=== PATIENT | female | born 1980 ===

== ENCOUNTER 2018-07-17 03:00 | Inpatient (IN) | payer MEDICAID ==
[2018-07-01 19:45] VITALS: BMI 36.0
[2018-07-17] MEDS ORDERED: Penicillin G 5 Million Unit Vial IVPB ONE ×2 (03:26→03:28)
[2018-07-17] MEDS ORDERED: Lactated Ringer's 1,000 ML IV ONE (03:26)
[2018-07-17] MEDS ORDERED: Lactated Ringer's 1,000 ML IV SCH (03:30)
--- NOTE | 2018-07-17 03:46 | OBHP ---
Datetime: 07/17/2018 03:32 IP Adm Impression: Postterm, intrauterine ; Active labor; Intact Membranes IP Admit Plan: Admit to unit; Initiate labor protocol IP Admit Plan Other: GBS positive; Advanced maternal age Admit Comment, IP Provider: 37 y.o. LMP 10/02/17, LATA 07/09/18 EGA 41w 1w confirmed by sono 01/03/18 at 12w 6d c/o Ctx onset 0200 hours, pain scale 7/10. (+) LOF 2000 hours 07/16/18, clear. Denies V B. (+) AFM. care: [facility]; AMA, abnormal 1hr GCT 148; 3hr GTT = 77/100/144/140; GBS (+) P Ob: x 3: 1998, female, 7lb, [facility]; 2003, female, 7 lb, [facility]; 2011, male 8lb 12oz, [facility]. No complications with any of the pregnancies or labor. P MANAGER PARKING: 14 x monthly x 5. Denies STIS or abnormal Pap PMH: denies PSH: denies NKDA Meds: PNV Sco Hx: denies tobacco, illicit drug or EtOH use. With FOB x 20 years. Homemaker Fam Hx: Mother alive 50y.o. Father alive 65 y.o., both no med issues P.E.: as above. WD in NAD. Awake, alert, oriented to time, person and place. Pleasant and cooperat travis. Accompanied by FOB and another support person Assessment: 37 y.o. P3, 41w 1d, active labor. Patient was scheduled for IOL this morning. GBS (+). Category 1 tracing. Clinically stable. Plan: 1) Admit 2) NPO 3) Admissoin labs 4) Continuous EFM 5) Penicillin, now and until delivery 6) Anticipate vaginal delivery Pelvic Type - PN: Adequate Extremities - PN: Normal Abdomen - PN: Normal Back - PN: Normal Breast - PN: Not Done Lungs - PN: Normal Heart - PN: Normal Thyroid - PN: Not Done Neurologic - PN: Normal HEENT - PN: Normal General - PN: Normal Weight - Estimated: 8 1/2 lb Presentation-Admit: Vertex FHR - Baseline A Provider: 130 Contraction Comments Provider: 2-3 Comments, ACOG Physical Exam: Abdomen: Gravid. Firm with contractions. Fundal height 40 cm All other systems reviewed and are negative Gestation - Est Wks by US: 41w 1d IP Hx Assessment: The History has been Reviewed and is Current EGA AdmitDate IP: 41.1 Vital Signs Provider: Reviewed; Within Normal Limits IP Indication for Induction: Not Applicable IP Chief Complaint: Uterine contractions NICHD Variability Prov Fetus A: Moderate 6-25bpm NICHD Accel Fetus A IP Provider: 15X15 FHR Category Provider Fetus A: Category I NICHD Decel Fetus A IP Provider: None Dilatation, Provider: 7 Effacement, Provider: 80 Station, Provider: -2 Genitourinary Exam: Normal DTRs - PN: Not Done
[2018-07-17 04:01] LABS: BASO % 0.3 % (0.0-2.0); EOS # 0.1 K/uL (0.0-0.7); EOS % 1.1 % (0.0-4.0); HEMOGLOBIN 12.2 g/dL (11.0-16.0); LYMPH # 2.7 K/uL (1.0-4.3); LYMPH % 28.2 % (20.0-40.0); MEAN CELL VOLUME 81.3 fL (81.0-99.0); MEAN CORPUSCULAR HEMOGLOBIN 26.7 pg (27.0-31.0); MEAN CORPUSCULAR HGB CONC 32.9 g/dL (33.0-37.0); MEAN PLATELET VOLUME 10.4 fL (7.2-11.7); MONO # 0.6 K/uL (0.0-0.8); MONO % 6.2 % (0.0-10.0); NEUT # 6.3 K/uL (1.8-7.0); NEUT % 64.2 % (50.0-75.0); NRBC % 0.2 % (0.0-2.0); RBC 4.56 Mil/uL (3.80-5.20); RED CELL DISTRIBUTION WIDTH 14.8 % (11.5-14.5); WHITE BLOOD COUNT 9.7 K/uL (4.8-10.8)
[2018-07-17 04:13] LABS: ALB/GLOB RATIO 1.2 (1.0-2.1); ALBUMIN 3.6 g/dL (3.5-5.0); AST/SGOT 18 U/L (14-36); BLOOD UREA NITROGEN 9 mg/dL (7-17); CALCIUM 9.4 mg/dl (8.6-10.4); GFR NON-AFRICAN AMERICAN > 60
[2018-07-17 04:15] LABS: ALT/SGPT < 6 U/L (9-52)
[2018-07-17] MEDS ORDERED: Nalbuphine HCL 10 mg/ml Ampule IVP ONE (04:18)
[2018-07-17] MEDS ORDERED: Fentanyl/Bupivacaine HCl 250 ML EPI ONE (07:43)
[2018-07-17] MEDS ORDERED: Oxytocin 30 UNIT in NS 500 ml 30 UNITS/500 ML BAG IV SCH (08:30)
--- NOTE | 2018-07-17 10:30 | OBPN ---
Datetime: 07/17/2018 08:45 IP Progress Impression: Normal progression of labor IP Procedures: Artificial ROM; Scalp Electrode; Sterile Vag Exam IP Progress Plan: Continue present management; Augmentation; Antibiotic therapy Membranes, Provider: Ruptured Amniotic Fluid Color, Provider: Clear Contraction Comments Provider: q2-3 min FHR - Baseline A Provider: 145 Vital Signs Provider: Reviewed NICHD Variability Prov Fetus A: Moderate 6-25bpm Dilatation, Provider: 9 Effacement, Provider: 90 Station, Provider: -1 NICHD Decel Fetus A IP Provider: Late Datetime: 07/17/2018 07:32 IP Informed Consent Obtain: Vaginal Delivery Gestation - Est Wks by US: 41.1 Presentation-Admit: Vertex IP Progress Note Comment: Patient seen and examined at bedside. Patient reports feeling contractions . Offers no complaints at this time. Vital signs reviewed SVE: /-3, bulging membranes A/P: Patient is a 37 year old at 41w1d who is in active labor, s/p nubain x 1 dose now req uesting epidural -Category I tracing -Will hydrate patient for epidural, anesthesia notified -GBS positive on Pen G 2.5 MMU q4H until delivery. Had one dose so far -Plan to AROM after epidural and next dose of Pen G -Anticipate vaginal delivery Plan discussed with Dr Frank Crane DO PGY-2 Pt seen and examined with Dr. Crane and agree with her findings and POC. FHR Category Provider Fetus A: Category I Datetime: 07/17/2018 03:32 Weight - Estimated: 8 1/2 lb NICHD Accel Fetus A IP Provider: 15X15
--- NOTE | 2018-07-17 10:56 | OBPN ---
Datetime: 07/17/2018 08:45 IP Progress Note Comment: Patient seen and examined at bedside. Patient is s/p epidural and is resti ng comfortably. AROM with moderate amount of clear fluid. Offers no complaints at this time VSS SVE: /-1 A/P: Patient is a 37 year old at 41w1d in active labor, s/p AROM and scalp electrode , now on pitocin -We will continue Pitocin -Reassuring tracing -Anticipate vaginal delivery Plan discussed with Dr Frank Crane DO PGY-2 Pt seen and examined with Dr. Crane and agreed with her findings and POC (Annotations: Data stored by CPN on behalf of user)
[2018-07-17] MEDS ORDERED: Oxycodone/Acetaminophen 5/325 mg Tab PO PRN ×2 (11:00)
[2018-07-17] MEDS ORDERED: Benzocaine/Menthol 20%-0.5% Topical Spray (60 ml) TOP PRN (12:00)
[2018-07-17 17:48] VITALS: RESP 18
--- NOTE | 2018-07-17 21:55 | OBPN ---
Datetime: 07/17/2018 09:35 IP Progress Impression: Normal progression of labor IP Procedures: Scalp Electrode; Sterile Vag Exam IP Progress Plan: Continue present management; Anticipate Vaginal Delivery Membranes, Provider: Ruptured Amniotic Fluid Color, Provider: Clear Contraction Comments Provider: q2-3 min FHR - Baseline A Provider: 145 IP Progress Note Comment: Patient seen and examined at bedside. Late decelerations noted on FHT. Pat ient reports having pressure. VSS SVE: 10/100/0 A/P: 37 year old at 41w1d in active phase of labor, on pitocin -Plan to start pushing -Anticipate vaginal delivery Plan discussed with Dr Frank Crane DO PGY-2 Pt seen and examined with Dr. Crane and all of her findings and POC were reviewed and agreed on. Vital Signs Provider: Reviewed NICHD Variability Prov Fetus A: Moderate 6-25bpm Dilatation, Provider: 10 Effacement, Provider: 100 Station, Provider: 0 NICHD Decel Fetus A IP Provider: Late
[2018-07-18 08:04] LABS: BASO % 0.3 % (0.0-2.0); EOS # 0.1 K/uL (0.0-0.7); EOS % 0.7 % (0.0-4.0); HEMOGLOBIN 10.8 g/dL (11.0-16.0); LYMPH # 2.2 K/uL (1.0-4.3); LYMPH % 21.2 % (20.0-40.0); MEAN CELL VOLUME 81.7 fL (81.0-99.0); MEAN CORPUSCULAR HEMOGLOBIN 27.5 pg (27.0-31.0); MEAN CORPUSCULAR HGB CONC 33.6 g/dL (33.0-37.0); MEAN PLATELET VOLUME 10.5 fL (7.2-11.7); MONO # 0.4 K/uL (0.0-0.8); MONO % 4.3 % (0.0-10.0); NEUT # 7.6 K/uL (1.8-7.0); NEUT % 73.5 % (50.0-75.0); NRBC % 0.1 % (0.0-2.0); RBC 3.94 Mil/uL (3.80-5.20); RED CELL DISTRIBUTION WIDTH 14.9 % (11.5-14.5); WHITE BLOOD COUNT 10.3 K/uL (4.8-10.8)
[2018-07-18] MEDS: Multiple Vitamins Tab PO SCH (10:20)
--- NOTE | 2018-07-18 18:09 | OBPPN ---
Datetime: 07/18/2018 07:42 PP Pain Prov: Within normal limits PP Nausea Prov: Denies PP Flatus Prov: Yes PP BM Prov: No PP Breasts Prov: Normal PP Heart Prov: Normal PP Lungs Prov: Normal PP Abdomen/Uterus Prov: Normal PP Lochia Prov: Normal PP Vulva/Perineum Prov: Not Done PP CVA Tenderness Prov: Not Done PP Extremities Prov: Normal PP C/S Incision Prov: Not Applicable PP Progress Prov: Normal PP Comments Phys Exam Prov: Fundal height 2 finger breadth below the umbilicus PP Impression Prov: Normal progression PP Plan Prov: Continue present management PP Progress Note Prov: Patient seen and examined at bedside. No acute events overnight as per nursin g staff. Pain is minimal and controlled with analgesics. Patient reports minimal lochia. She is passi ng flatus, urinating normally, ambulating well, and tolerating diet. She states that the baby is hiren stfeeding with good latch. She denies nausea, vomiting, or bowel movement. She further denies fevers , chills, shortness of breath, chest pain, or urinary symptoms. VS: BP:109/61 T: 98.1 HR: 62 O2: 100% Gen: NAD, AAOX3 Cardio: RRR, normal S1, S2 Lungs: CTA b/l Abdomen: Soft, non-tender, normal bowel sounds, Fundal height 2 finger breadth below the umbilicus Extremities: trace edema Assessment: Patient is a 37 year old s/p PPD #1. Plan: - Stable, afebrile - Pain control with Ibuprofen and Percocet - Encourage ambulation, hydration, - Continue routine post-deliverycare - Plan for discharge on 07/19 - Case discussed with Dr. Dale Long, PGY-1 Attending Note: patient seen, evaluated and examiend by me with the resident. I agree with the abo ve as documented. PPD#1 H/H 10.8/32.2. Patient is hemodynamically and clinically stable. Vital Signs Provider PP: Reviewed; Within Normal Limits
[2018-07-19] MEDS: Multiple Vitamins Tab PO SCH (09:28)
[2018-07-19] MEDS ORDERED: Influenza Vaccine 60 mcg/0.5 mL SYR (4YR UP) IM ONE (10:00)
[2018-07-19 16:02] VITALS: BP 125/73; PULSE 66; TEMP 97.8; O2SAT 98
--- NOTE | 2018-07-19 21:15 | OBDCSUM ---
Datetime: 07/19/2018 15:00 Discharged to, Provider: Home Follow up at, Provider: ALONDRA Disch Instr Activity: Normal activity Disch Instr Diet: Regular Discharge Diet restrict Prov: none Discharge Time: 07/19/2018 17:00 Follow up in weeks, Provider: 08/28/2018 Disch Referrals: None Datetime: 07/19/2018 14:50 Discharged to, Provider: Home Disch Instr Activity: Normal activity Disch Instr Diet: Regular Discharge Instructions, Provider: Routine instructions given Discharge Diagnosis, Provider: Term Delivered Discharge Time: 07/19/2018 14:49 Disch Referrals: None Discharge Comment, Provider: Patient seen and examined at bedside this am. No acute events overnight as per pt and nursing staff. Pain is minimal and controlled with ibuprofen only. Patient reports min imal lochia and minimal bleeding. She is passing flatus, had bowel movements, urinating, ambulating w ell and tolerating diet. She states that the baby is with good latch and also bottle-fe eding. She denies fevers, chills, headache, dizziness, vision changes, shortness of breath, chest pa in, nausea, vomiting, dysuria, hematuria. VS: T:97.9 BP:110/65 HR: 75 Gen: NAD, AAOX3 Cardio: RRR, normal S1, S2 Lungs: CTA b/l Abdomen: Soft, non-tender, normal bowel sounds, Fundal height 2 finger breadths below the umbilicu s Extremities: trace edema Assessment: Patient is a 37 year old PPD #2 s/p . Hemodynamically stable, afebrile. Pain controlle d with Ibuprofen. Had bowel movements, ambulating and tolerating diet. Stable and Satisfactory condition and recovery Plan: - Encourage ambulation, hydration, - Advise to pelvic rest x 6-8 weeks - Continue routine post-delivery care - Plan for discharge today - Follow up with [facility] [employer] [facility] in 1 week - Case discussed with Dr. Frank Heath PGY1 Pt seen and examined with Dr. Vital and agreed with his findings and POC Contraception after Delivery: Undecided
--- NOTE | 2018-07-19 21:28 | OBPPN ---
Datetime: 07/19/2018 07:52 PP Pain Prov: Within normal limits PP Nausea Prov: Denies PP Flatus Prov: Yes PP BM Prov: Yes PP Breasts Prov: Not Done PP Heart Prov: Normal PP Lungs Prov: Normal PP Abdomen/Uterus Prov: Normal PP Lochia Prov: Normal PP Vulva/Perineum Prov: Not Done PP CVA Tenderness Prov: Normal PP Extremities Prov: Normal PP C/S Incision Prov: Not Applicable PP Progress Prov: Normal PP Comments Phys Exam Prov: Fundal height 2 finger breadth below the umbilicus. Fundus firm and non-tender PP Impression Prov: Normal progression PP Plan Prov: Discharge PP Progress Note Prov: Patient seen and examined at bedside. No acute events overnight as per nursin g staff. Pain is minimal and controlled with analgesics. Patient reports minimal lochia and minimal b leeding. She is passing flatus, urinating normally, ambulating well, and tolerating diet. She states that the baby is with good latch and also bottle-feeding. She denies fevers, chills, s hortness of breath, chest pain, nausea, vomiting, dysuria. VS: T: 97.9 BP: 110/65 HR: 75 Gen: NAD, AAOX3 Cardio: RRR, normal S1, S2 Lungs: CTA b/l Abdomen: Soft, non-tender, normal bowel sounds, Fundal height 2 finger breadths below the umbilicu s Extremities: trace edema Assessment: Patient is a 37 year old s/p PPD #2. Plan: - Stable, afebrile - Pain controlled with Ibuprofen. Has not been requiring percocet - Encourage ambulation, hydration, - Continue routine post-delivery care - Plan for discharge today - Case discussed with Dr. Frank Heath PGY1 Pt seen and examined with Dr. Vital and fully discussed his findings as noted above and his POC an d agreed on. IP PP Procedures: Antibiotics IP PP Procedures Comments: Penicillin G administered for (+) GBS
--- NOTE | 2018-07-21 15:32 | OBDS ---
DELIVERY PERSONNEL Delivery Doctor: Pretty Marie DO Software Project Engineer: Eliza Grimaldo RN Anesthesiologist: Sabina Valdovinos MD Resident: Royce MATERNAL INFORMATION Delivery Anesthesia: Epidural Medications in Delivery: 0 Placenta Cultured: No Maternal Complications: None Provider Comments: This now P4 delivered a viable female via over second degree perineal laceration. Infant's head was delivered in a controlled fashion. 's shoulders were delivered a traumatically. No nuchal was appreciated. Infant's mouth and nose were suctioned with bulb syringe. C ord was clamped and cut. Cord blood and cord pH were collected and sent to the lab. An intact 3VC farhana centa was delivered sponteanously. EBL 300cc. Mom and baby are recovering in stable condition. Dr Chuy chirinos was present for the entire delivery. Didi Crane DO PGY-2 I had supersvized and assisted Dr. Crane with this delivery. LABOR SUMMARY EDC: 07/09/2018 00:00 No. Babies in Womb: 1 Attempted: No Labor Anesthesia: Epidural LABOR INFORMATION Reason for Induction: Postterm Onset of Labor: 07/17/2018 01:30 Complete Dilatation: 07/17/2018 09:30 Oxytocin: Augmentation Group B Beta Strep: Positive (Annotations: 06/14/2018) Antibiotics # of Doses: 2 Antibiotics Time of Last Dose: 0745 Steroids Given: None Reason Steroids Not Administered: Not Applicable MEMBRANES Membranes Rupture Method: Artificial Rupture of Membranes: 07/16/2018 20:00 Length of Rupture (hrs): 13.87 Amniotic Fluid Color: Light Meconium Amniotic Fluid Amount: Moderate Amniotic Fluid Odor: None STAGES OF LABOR Stage 1 hrs: 8 Stage 1 min: 0 Stage 2 hrs: 0 Stage 2 min: 22 Stage 3 hrs: 0 Stage 3 min: 5 Total Time in Labor hrs: 8 Total Time in Labor min: 27 VAGINAL DELIVERY Episiotomy: None Laceration Extension: Second Degree Laceration Type: Perineal Other Laceration: Left Labial Laceration Repair: Yes Laceration Repair Note: Second degree perineal laceration was repaired with anatomic reapproximation with 2-0 chromic suture. Left labial laceration was repaired with anatomic reapproximation with 3-0 chromic suture. Hemostasis achieved. Initial Vag Sponge Count: 20 Final Vag Sponge Count: 20 Initial Vag Sharps Count: 2 Final Vag Sharps Count: 2 Sponge Count Correct: Yes Sharps Count Correct: Yes BABY A INFORMATION Infant Delivery Date/Time: 07/17/2018 09:52 Method of Delivery: Vaginal Born in Route : No : N/A Forceps: N/A Vacuum Extraction: N/A Shoulder Dystocia : No SHOULDER DYSTOCIA BABY A Infant Delivery Date/Time: 07/17/2018 09:52 PRESENTATION/POSITION BABY A Presentation: Cephalic Cephalic Presentation: Vertex Vertex Position: Right Occipital Anterior Breech Presentation: N/A PLACENTA INFORMATION BABY A Placenta Delivery Time : 07/17/2018 09:57 Placenta Method of Delivery: Spontaneous Placenta Status: Delivered SCORES BABY A Heart Rate 1 min: >100 bpm Resp Effort 1 min: Good Cry Reflex Irritability 1 min: Cough or Sneeze or Pulls Away Muscle Tone 1 min: Active Motion Color 1 min: Body [place], Extremities Blue SCORE 1 MIN: 9 Heart Rate 5 min: >100 bpm Resp Effort 5 min: Good Cry Reflex Irritability 5 min: Cough or Sneeze or Pulls Away Muscle Tone 5 min: Active Motion Color 5 min: Body [place], Extremities Blue SCORE 5 MIN: 9 INFORMATION BABY A Gestational Age at Delivery: 41.1 Gestational Status: Post-term Outcome : Liveborn Condition : Stable Infant Sex: Female IDENTIFICATION/MEDS BABY A ID Band Number: [id number] ID Band Location: Left Leg; Left Arm Sensor Applied: Yes Sensor Number: [id number] Sensor Location : Cord Clamp Vitamin K Given : Aquamephyton 1 mg IM; Right Thigh Erythromycin Given: Given Both Eyes WEIGHT/LENGTH BABY A Infant Birthweight (gms): 4200 Weight (lb): 9 Infant Weight (oz): 4 Length Inches: 20.00 Infant Length cms: 50.8 CORD INFORMATION BABY A No. Cord Vessels: 3 Nuchal Cord : N/A Cord pH Baby Arterial: 7.23 Cord Blood Taken: Yes Suction: Mouth; Nose ASSESSMENT BABY A Infant Complications: None Physical Findings at Delivery: Within Normal Limits Infant Respirations: Appears Normal Hand Box Coverer/ALS Called : No Transferred To: Remains with Mother
== END 2018-07-19 17:30 | disposition home or self-care (01) | DRG 560 ==
LOC: C.EROB 03:00 → C.4D 03:17 → C.4M 12:41
PROVIDERS: ADMIT Obstetrics & Gynecology; ATTEND Obstetrics & Gynecology
PROC: 10E0XZZ Delivery of Products of Conception, External Approach (ICD-10-PCS; principal; 2018-07-17)
PROC: 10907ZC Drainage of Amniotic Fluid, Therapeutic from Products of Conception, Via Natural or Artificial Opening (ICD-10-PCS; 2018-07-17)
DX: O76 Abnormality in fetal heart rate and rhythm complicating labor and delivery (principal); O48.0 Post-term pregnancy; Z37.0 Single live birth; O99.824 Streptococcus B carrier state complicating childbirth; Z3A.41 41 weeks gestation of pregnancy; O77.0 Labor and delivery complicated by meconium in amniotic fluid